=== PATIENT | female | born 1950 | race Caucasian/White ===

== ENCOUNTER 2020-09-03 09:14 | Outpatient (CLI) | payer MEDICARE, SELFPAY ==
--- NOTE | ~2020-09-03 | MM_ITS ---
EXAMINATION: MM screening [facility] BI w preethi HISTORY: Screening TECHNIQUE: Craniocaudal and mediolateral oblique 3-D tomosynthesis images were obtained and synthetic 2-D images were generated. CAD analysis was submitted and interpreted. COMPARISON: Comparison to multiple prior studies sequentially, with oldest reviewed study dated 07/14. BREAST PARENCHYMAL COMPOSITION: There are scattered areas of fibroglandular density. FINDINGS: There is no evidence of suspicious mass, calcification, or architectural distortion to sugg est malignancy in either breast. There has been no suspicious interval change. IMPRESSION: 1. No mammographic evidence of malignancy. 2. Recommend routine screening mammography in one year. BI-RADS Category 1: Negative Reviewed, dictated and finalized at location A.
== END 2020-09-03 09:15 | disposition home or self-care (01) ==
LOC: ANHIMG 09:19
PROVIDERS: PCP Internal Medicine; Visit Provider Obstetrics & Gynecology
DX: Z12.31 Encounter for screening mammogram for malignant neoplasm of breast (principal)
CPT/HCPCS: 77063; 77067

== ENCOUNTER 2020-11-06 07:45 | Outpatient (CLI) | payer MEDICARE, SELFPAY ==
--- NOTE | ~2020-11-06 | DEXA_ITS ---
Bone Density Report Name: Sneha Smith Age: 70 Sex: Female Ethnicity: White Date of : 1950 Indication: postmenopausal; Referring Provider: CHARLIE BERNSTEIN Study: Bone densitometry was performed. Exam Date: November 06, 2020 Accession number: [id number] Bone Density: Region BMD T-score Z-score Classification AP Spine (L1-L4) 1.180 1.2 3.2 Normal Femoral Neck (Left) 0.766 -0.7 0.9 Normal Total Hip (Left) 0.848 -0.8 0.6 Normal Total Hip Bilateral Avg 0.830 -1.0 0.5 Osteopenia Femoral Neck (Right) 0.758 -0.8 0.9 Normal Total Hip (Right) 0.811 -1.1 0.3 Osteopenia World Health Organization criteria for BMD impression classify patients as: Normal (T-score at or above -1.0), Osteopenia (T-score between -1.0 and -2.5), or Osteoporosis (T-score at or below -2.5). 10-year Fracture Risk(1): Major Osteoporotic Fracture 8.3% Hip Fracture 0.6% Reported Risk Factors: [place] (), Neck BMD=0.758, BMI=25.1 (1) FRAX(R) Version 3.08. Fracture probability calculated for an untreated patient. Fracture probability may be lower if the patient has received treatment. Previous Exams: Region Exam Age BMD T-score BMD Change BMD Change Date g/cm2 vs Baseline vs Previous AP Spine(L1-L4) 11/06/2020 70 1.180 1.2 0.025(2.2%)# -0.020(-1.6%) 06/21/2017 66 1.200 1.4 0.045(3.9%)# 0.045(3.9%)# 03/21/2012 61 1.155 1.0 Total Hip(Left) 11/06/2020 70 0.848 -0.8 -0.050(-5.5%)# -0.032(-3.6%)* 06/21/2017 66 0.879 -0.5 -0.018(-2.0%)# -0.018(-2.0%)# 03/21/2012 61 0.897 -0.4 Total Hip(Right) 11/06/2020 70 0.811 -1.1 -0.045(-5.2%)# -0.032(-3.8%)* 06/21/2017 66 0.843 -0.8 -0.013(-1.5%)# -0.013(-1.5%)# 03/21/2012 61 0.856 -0.7 *Denotes significance at 95% confidence level, LSC for AP Spine = 0.022 g/cm2, LSC for Total Hip = 0.027 g/cm2 Clinical Information Provided by Patient: Has used the following medications: Vitamin D Patient maximum height was 64.5 Menopause Age: 59 Onset of menses at age 12 Number of children 2 Impression: The patient has low bone mass, based on the Right Total Hip T-score. The patient has an estimated ten-year risk of hip fracture of 0.6% and an estimated ten-year risk of major fracture of 8.3%, based on the WHO FRAX algorithm. The BMD for the Total Hip(Left) decreased, changing by -3.6% since the last DXA exam. The BMD for the Total Hip(Right) decreased, changing by -3.8% since
== END 2020-11-06 07:46 | disposition home or self-care (01) ==
PROVIDERS: PCP Internal Medicine; Visit Provider Obstetrics & Gynecology
DX: Z78.0 Asymptomatic menopausal state (principal); M85.851 Other specified disorders of bone density and structure, right thigh
CPT/HCPCS: 77080

== ENCOUNTER 2021-09-27 07:55 | Outpatient (CLI) | payer MEDICARE, SELFPAY ==
--- NOTE | ~2021-09-27 | MM_ITS ---
EXAMINATION: MM screening [facility] BI w preethi HISTORY: Screening mammogram TECHNIQUE: Craniocaudal and mediolateral oblique 3-D tomosynthesis images were obtained and synthetic 2-D images were generated. CAD analysis was submitted and interpreted. COMPARISON: 09/01/2020, 08/28/2019, 06/22/2018 bilateral screening mammogram examinations BREAST PARENCHYMAL COMPOSITION: There are scattered areas of fibroglandular density. FINDINGS: Stable mild fibroglandular asymmetry. Occasional bilateral benign calcifications. There is no evidence of suspicious mass, calcification, or architectural distortion to suggest malignancy in e ither breast. There has been no suspicious interval change. IMPRESSION: 1. No mammographic evidence of malignancy. 2. Recommend routine screening mammography in one year. BI-RADS Category 2: Benign finding(s). Reviewed, dictated and finalized at location A. [place] [employer]
== END 2021-09-27 07:56 | disposition home or self-care (01) ==
LOC: ANHIMG 07:57
PROVIDERS: PCP Internal Medicine; Visit Provider Obstetrics & Gynecology
DX: Z12.31 Encounter for screening mammogram for malignant neoplasm of breast (principal)
CPT/HCPCS: 77063; 77067

== ENCOUNTER 2022-12-06 09:08 | Outpatient (CLI) | payer MEDICARE, SELFPAY ==
--- NOTE | ~2022-12-06 | MM_ITS ---
EXAMINATION: MM screening [facility] BI w preethi HISTORY: Screening mammogram TECHNIQUE: Craniocaudal and mediolateral oblique 3-D tomosynthesis images were obtained and synthetic 2-D images were generated. CAD analysis was submitted and interpreted. COMPARISON: 09/27/2021, 09/03/2020, 08/28/2019 BREAST PARENCHYMAL COMPOSITION: There are scattered areas of fibroglandular density. FINDINGS: No suspicious mass, calcification, or architectural distortion are identified in either kael ast to suggest malignancy. There has been no suspicious interval change. IMPRESSION: 1. No mammographic evidence of malignancy. 2. Recommend routine screening mammography in one year. BI-RADS Category 1: Negative Reviewed, dictated and finalized at location A. [employer]
== END 2022-12-06 09:09 | disposition home or self-care (01) ==
PROVIDERS: PCP Internal Medicine; Visit Provider Internal Medicine
DX: Z12.31 Encounter for screening mammogram for malignant neoplasm of breast (principal)
CPT/HCPCS: 77063; 77067

== ENCOUNTER 2023-03-16 12:48 | Outpatient (CLI) | payer MEDICARE, SELFPAY ==
--- NOTE | ~2023-03-16 | DEXA_ITS ---
Bone Density Report Name: STANFORD SWIFT Age: 72 Sex: Female Ethnicity: White Date of : 1950 Indication: osteopenia; parental hip fracture; height loss; postmenopausal Referring Provider: FLAKO, YNES Stanley Study: Bone densitometry was performed. Exam Date: March 16, 2023 Accession number: [id number] Bone Density: Region BMD T-score Z-score Classification AP Spine(L1-L4) 1.227 1.6 3.8 Normal Femoral Neck (Left) 0.789 -0.5 1.3 Normal Total Hip (Left) 0.858 -0.7 0.8 Normal Femoral Neck (Right) 0.785 -0.6 1.2 Normal Total Hip (Right) 0.820 -1.0 0.5 Normal Total Hip Mean 0.839 -0.9 0.7 Normal World Health Organization criteria for BMD impression classify patients as: Normal (T-score at or above -1.0), Osteopenia (T-score between -1.0 and -2.5), or Osteoporosis (T-score at or below -2.5). 10-year Fracture Risk: FRAX not reported because: All T-scores for Spine Total, Hip Total, Femoral Neck at or above -1.0 Previous Exams: Region Exam Age BMD T-score BMD Change BMD Change Date g/cm2 vs Baseline vs Previous AP Spine (L1-L4) 03/16/2023 72 1.227 1.6 0.072 (6.2%)# 0.047 (3.9%)* 11/06/2020 70 1.180 1.2 0.025 (2.2%)# -0.020 (-1.6%) 06/21/2017 66 1.200 1.4 0.045 (3.9%)# 0.045 (3.9%)# 03/21/2012 61 1.155 1.0 Total Hip(Left) 03/16/2023 72 0.858 -0.7 -0.039 (-4.3%) 0.011 (1.3%) 11/06/2020 70 0.848 -0.8 -0.050 (-5.5%) -0.032 (-3.6%) 06/21/2017 66 0.879 -0.5 -0.018 (-2.0%) -0.018 (-2.0%) 03/21/2012 61 0.897 -0.4 Total Hip(Right) 03/16/2023 72 0.820 -1.0 -0.036 (-4.2%) 0.009 (1.1%) 11/06/2020 70 0.811 -1.1 -0.045 (-5.2%) -0.032 (-3.8%) 06/21/2017 66 0.843 -0.8 -0.013 (-1.5%) -0.013 (-1.5%) 03/21/2012 61 0.856 -0.7 *Denotes significance at 95% confidence level, LSC for AP Spine = 0.022 g/cm2, LSC for Total Hip = 0.027 g/cm2 # Denotes dissimilar scan types or analysis methods Clinical Information Provided by Patient: Parent has had a hip fracture Has used the following medications: Vitamin D Patient maximum height was 64.5 Menopause Age: 57 Onset of menses at age 12 Number of children 2 Impression: The patient has normal bone mass. The patient has risk factors, including: parental hip fracture. No significant bone loss was observed. Discussion: BONE DENSITY IS ABOVE THE MINIMUM DESIRABLE LEVEL AT ALL SKELETAL SITES TESTED. This patient?s bone
== END 2023-03-16 12:49 | disposition home or self-care (01) ==
LOC: ANHIMG 12:51
PROVIDERS: PCP Internal Medicine; Visit Provider Internal Medicine
DX: Z78.0 Asymptomatic menopausal state (principal)
CPT/HCPCS: 77080

== ENCOUNTER 2023-07-06 07:52 | Emergency (ER) | payer MEDICARE, SELFPAY ==
--- NOTE | ~2023-07-06 | XR_ITS ---
EXAMINATION: XR knee RT min 4V DATE: 07/06/2023 09:55 INDICATION: Right knee pain. TECHNIQUE: 4 views of right knee were obtained. COMPARISON: Right knee radiographs 02/20/2015 FINDINGS: Bone alignment is normal. No fracture. There is mild tricompartmental osteoarthritis. No kn ee joint effusion. IMPRESSION: 1. Mild right knee osteoarthritis. Reviewed, dictated and finalized at location A.
[2023-07-06 07:53] VITALS: BP 189/82; PULSE 70; RESP 16; TEMP 36.3; O2SAT 100
[2023-07-06] MEDS: lisinopriL 10 MG TABLET PO (09:00)
[2023-07-06] MEDS: TETANUS,DIPHTHERIA,AC PERTUSSIS ADULT (0.5 ML) BOOSTRIX IM (09:01)
[2023-07-06] MEDS: ACETAMINOPHEN 325 MG TABLET 650 MG PO (09:04)
[2023-07-06] MEDS: hydroCHLOROthiazide 12.5 MG CAPSULE PO (09:10)
--- NOTE | 2023-07-06 10:01 | ED.WOUNDLAC ---
HPI - Wound/Laceration General Chief Complaint: Wound/Laceration Stated Complaint: FALL,R KNEE INJURY Time Seen by Provider: 07/06/23 08:25 Source: patient and RN notes reviewed Mode of arrival: ambulatory Limitations: no limitations History of Present Illness HPI narrative: This is a 72 year old female with history of hypertension who presents for evaluation of left knee laceration. Patient states she was walking on a trail and she tripped onto her right knee. She has a laceration that will need to be repaired. She reports she caught herself with her hands and she hit left side of her head. She does not think she hit her head hard but she is developing more a bruise to left eye brow. She denies headache, dizziness, nausea or vomiting. She does not remember her last tetanus but thinks it has been more than 10 years ago. She has not taken her blood pressure medications yet this morning Related Data Home Medications Medication Instructions Recorded Confirmed ascorbic acid 100 mg-elderberry tablet PO 09/01/20 09/01/20 fruit 50 mg chewable tablet (Airborne (elderberry)) cholecalciferol (vitamin D3) 25 25 mcg PO DAILY 09/01/20 09/01/20 mcg (1,000 unit) capsule coenzyme Q10 10 mg capsule 10 mg PO ONCE 09/01/20 09/01/20 hydrochlorothiazide 12.5 mg tablet 12.5 mg PO DAILY 09/01/20 09/01/20 lisinopril 10 mg tablet 10 mg PO DAILY 09/01/20 09/01/20 rosuvastatin 5 mg tablet (Crestor) 5 mg PO DAILY 09/01/20 09/01/20 Allergies Allergy/AdvReac Type Severity Reaction Status Date / Time chlorhexidine Allergy Unknown Unknown Verified 07/06/23 08:58 nickel Allergy Unknown Unknown Verified 07/06/23 08:58 No Known Allergies Allergy Unknown Unverified 12/17/15 06:27 paraben Allergy Unknown Unknown Verified 07/06/23 08:58 propylene glycol Allergy Unknown Unknown Verified 07/06/23 08:58 Review of Systems Constitutional: Constitutional: Denies weakness Cardiovascular: Cardiovascular: Denies syncope, Denies rapid heart rate, Denies irregular heart rhythm, Denies leg edema and Denies dyspnea Respiratory: Respiratory: Denies chest congestion, Denies hemoptysis, Denies excessive phlegm production and Denies dyspnea Gastrointestinal: Gastrointestinal: Denies abdominal pain, Denies hematochezia, Denies diarrhea and Denies vomiting Genitourinary: Genitourinary: Denies hematuria and Denies dysuria Musculoskeletal: Musculoskeletal: Reports arthralgias, Denies joint swelling, Denies loss of height and Denies muscle weakness Integumentary/Breasts: Comments: knee wound Neurologic: Denies syncope, Denies focal weakness and Denies weakness PMFSH Past Medical History Medical History (Updated 07/06/23 @ 18:20 by Petrona Eldridge MD) High cholesterol Hypertension Surgical History Surgical History (Updated 09/01/20 @ 08:44 by Alis Roberson CMA) No pertinent past surgical history Family History Family History Father Hypertension Mother Hypertension Family history of tremor Grandparent Carcinoma of colon Other Cerebrovascular accident Family history of gout Social History Social History Smoking status: Never smoker Second hand tobacco smoke exposure: No Alcohol intake: current Exam Const: General: no acute distress and alert Nutritional Appearance: well nourished Orientation/consciousness: patient oriented x3 Limitations: no limitations HENMT: Head: hematoma (left forehead hematoma) left frontal Ears: external ears normal Throat: posterior oropharynx normal and uvula midline Eyes: Pupils: Equal, round and reactive pupils present EOM: EOMs intact bilaterally Neck: Neck: normal visual inspection, no lymphadenopathy and no meningeal signs Chest: Chest palpation & inspection: normal inspection of the chest Resp: Effort & Inspection: normal respiratory effort Auscultation:
[2023-07-06 10:03] VITALS: BP 184/98; PULSE 65; RESP 18; O2SAT 100
[2023-07-06 10:44] VITALS: BP 185/93; PULSE 67; RESP 16; O2SAT 100
== END 2023-07-06 10:51 | disposition home or self-care (01) ==
PROVIDERS: Emergency Provider General Practice; PCP Internal Medicine
DX: S81.011A Laceration without foreign body, right knee, initial encounter (principal); S09.90XA Unspecified injury of head, initial encounter; I10 Essential (primary) hypertension; Z23 Encounter for immunization; W01.0XXA Fall on same level from slipping, tripping and stumbling without subsequent striking against object, initial encounter
CPT/HCPCS: 12002; 73564; 90471; 90715; 99283; A9270

== ENCOUNTER 2024-03-18 13:41 | Outpatient (CLI) | payer MEDICARE, SELFPAY ==
--- NOTE | ~2024-03-18 | MM_ITS ---
EXAMINATION: MM screening [facility] BI w preethi HISTORY: Screening mammogram TECHNIQUE: Craniocaudal and mediolateral oblique 3-D tomosynthesis images were obtained and synthetic 2-D images were generated. CAD analysis was submitted and interpreted. COMPARISON: 12/06/2022, 09/27/2021 Bilateral screening mammogram examinations BREAST PARENCHYMAL COMPOSITION: There are scattered areas of fibroglandular density. FINDINGS: There is no evidence of suspicious mass, calcification, or architectural distortion to sugg est malignancy in either breast. There has been no suspicious interval change. IMPRESSION: 1. No mammographic evidence of malignancy. 2. Recommend routine screening mammography in one year. BI-RADS Category 1: Negative Reviewed, dictated and finalized at location A.
== END 2024-03-18 13:42 | disposition home or self-care (01) ==
PROVIDERS: PCP Internal Medicine; Visit Provider Internal Medicine
DX: Z12.31 Encounter for screening mammogram for malignant neoplasm of breast (principal)
CPT/HCPCS: 77063; 77067

== ENCOUNTER 2025-05-28 07:45 | Outpatient (CLI) | payer MEDICARE, SELFPAY ==
--- NOTE | ~2025-05-28 | MM_ITS ---
EXAMINATION: MM screening brigette BI w preethi HISTORY: Screening TECHNIQUE: Craniocaudal and mediolateral oblique 3-D tomosynthesis images were obtained and synthetic 2-D images were generated. CAD analysis was submitted and interpreted. COMPARISON: Comparison to multiple prior studies sequentially, with oldest reviewed study dated 01/2018. BREAST PARENCHYMAL COMPOSITION: Not dense: There are scattered areas of fibroglandular density. FINDINGS: There is no evidence of suspicious mass, calcification, or architectural distortion to sugg est malignancy in either breast. There has been no suspicious interval change. IMPRESSION: 1. No mammographic evidence of malignancy. 2. Recommend routine screening mammography in one year. BI-RADS Category 1: Negative Reviewed, dictated and finalized at location A.
--- OUTSIDE RECORDS SUMMARY | 2025-05-28 07:50 | XMS_ITS | Clinical Summary ---
Author Organization [facility] at [facility] Medical Office Building Address [address] [place] [phone] Care Team Providers Care Poundmaster Name Role Phone Jennie Horton MD Primary Care Provider Allergies Active Allergy Reactions Criticality Noted Date Comments Alcohol-Propylene Glycol Unknown 12/02/2020 Chromic Acid Itching Low 03/19/2014 Lauryl Glucoside Unknown 12/02/2020 Phenylmercuric Acetate Unknown 12/02/2020 Potassium Bichromate Itching Low 03/19/2014 Sorbitan Sesquioleate Unknown 12/02/2020 Tert-Butylhydroquinone Unknown 12/02/2020 Medications cholecalciferol (VITAMIN D-3) 1,000 unit Take 2 tablet/caps ule (2,000 Units total) by mouth daily Active rosuvastatin (CRESTOR) 5 mg tabletIndications:M ixed hyperlipidemia TAKE 1 TABLET BY MOUTH EVERY OTHER DAY 45 tablet 3 4 Active hydroCHLOROthiazide (HYDRODIURIL) 25 mg tablet Take 1 tablet (25 mg total) by mouth daily 90 tablet 1 5 Active lisinopriL (PRINIVIL,ZESTRIL) 40 mg tablet Take 1 tablet (40 mg total) by mouth daily 90 tablet 1 5 Active Active Problems Problem Noted Date Diagnosed Date Essential hypertension 07/31/2017 Mixed hyperlipidemia 07/31/2017 Gastroesophageal reflux disease without esophagi tis 07/31/2017 Fatty liver disease, nonalcoholic 07/31/2017 Dermatomyositis 07/31/2017 Nonalcoholic steatohepatitis (PALOMO) 04/30/2014 Osteoarthritis 04/30/2014 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 Allergic contact dermatitis 03/26/2013 Overview (11/27/2019): (8) Carba mix 3.0 pet: 1-Palpable Erythema (18) Potassium dichromate 0.25 pet: 1-Palpable Erythema (19) Balsam corby 25.0 pet: 1-Palpable Erythema (20) Nickelsulfate hexahydrate 2.5 pet: Macular (non-palpable) Erythema (25) CI+Me-isothiazolinone (Kathon CG, 100ppm) 0.01 pet: 1-Palpable Erythema (27) Methyldibromoglutaronitrile (MDBGN) 0.5 pet: 1-Palpable Erythema (28) Fragrance mix 8.0 pet: Macular (non-palpable) Erythema (33) Propylene glycol 30.0 pet: 1-Palpable Erythema (53) Lauryl glucoside 3.0 pet: Macular (non-palpable) Erythema (55) Amidoamine 0.1 pet: Macular (non-palpable) Erythema (16) Chlorhexidine digluconate 0.5 aq: Macular (non-palpable) Erythema (17) Paraben Mix 16.0 pet: Macular (non-palpable) Erythema (18) Phenylmercuric acetate 0.01 aq: Macular (non-palpable) Erythema (26) Sorbitan sesquioleate 20.0 pet: Macular (non-palpable) Erythema 36) tert-Butylhydroquinone: Macular (non-palpable) Erythema (39) Dodecyl gallate 0.25 pet: 1-Palpable Erythema (43) Euxyl K 400 1.5 pet: Macular (non-palpable) Erythema (48) Dimethylaminopropylamine 1.0 aq: Macular (non-palpable) Erythema (8) Goldsodiumthiosulfate 2.0 pet: Macular (non-palpable) Erythema Encounters Date Type Department Care Team Description 04/29/2025 ACO Medication Access [facility] Care Organization [address] [place] [id number] Rosaura Osorio CPhT 04/17/2025 Telephone [facility] Primary Care [address] [place] [address] [place] [phone] Jennie Aj Successful Phone Call ([employer]) from Last 3 Months Immunizations Immunization Administration Dates Next Due Flucelvax Influenza Quad 08/28/2019 Influenza, Quad, Adjuvantate d, Intramuscular 08/17/2023,09/13/2022,09/01/2021 Influenza, Quadrivalent, Maida l Culture-based MDCK, Preservative Free, Antibiotic Free, Intramuscular 08/28/2019 Influenza, Quadrivalent, Hig h Dose, Preservative Free, Intrr 09/01/2021,08/20/2020 Influenza, Quadrivalent, Spl it, Preservative Free, Intramuscular 08/14/2017 Influenza, Trivalent, High D ose, Split, Preservative Free, Intramuscular 11/27/2018 Influenza, Unspecified 09/03/2024,2022(Deferred: Patient Refused),08/20/2018 Pfizer SARS-CoV-2 Monovalent Vaccination (12+ Yrs) PURPLE 04/19/2022,09/27/2021,01/22/2021,12/24 Pneumococcal Conjugate PCV 13 02/26/2018 Pneumococcal Polysaccharide PPV23 11/27/2018 RSV Vaccine, Pref, Recombina nt, Subunit, Adjuvanted, PF, IM (Arexvy) 11/29/2023 Tdap 07/06/2023 ZOSTER LIVE 11/06/2014,11/25/2013 Surgical History Surgery Date Site/Laterality Comments FOOT SURGERY 11/20/2014 - 12/20/2014 CATARACT EXTRACTION ? Medical History Medical History Date Comments Hypertension Hypercholesteremia GERD (gastroesophageal reflux disease) years ago Family History Medical History Relation Name Comments Heart disease Other Hypertension Other Stroke Other Relation Name Status Comments Other Social History Tobacco Use Types Packs/Day Years Used Date Smoking Tobacco: Never Smokeless Tobacco: Never Alcohol Use Standard Drinks/Week Comments Yes 0 (1 standard drink = 0.6 oz pur e alcohol) AUDIT-C Answer Date Recorded Q1: How often do you have a drink containing alc ohol? Monthly or less 06/02/2021 Q2: How many drinks containi ng alcohol do you have on a typical day when you are drinking? 1 or 2 06/02/2021 Q3: How often do you have si x or more drinks on one occasion? 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 Not on file Obstetrics History Last Filed Vital Signs Vital Sign Reading Time Taken Comments Blood Pressure 128/88 01/24/2025 2:36 PM SNUFF BLENDER Pulse 70 01/24/2025 2:36 PM SNUFF BLENDER Temperature 37.1 C (98.7 F) 01/24/2025 2:36 PM SNUFF BLENDER Respiratory Rate - - Oxygen Saturation 98% 01/24/2025 2:36 PM SNUFF BLENDER Inhaled Oxygen Concentration - - Weight 67.4 kg (148 lb 9.6 oz) 01/24/2025 2:36 P M SNUFF BLENDER Height 160 cm (5' 3) 01/24/2025 2:36 PM SNUFF BLENDER Body Mass Index 26.32 01/24/2025 2:36 PM SNUFF BLENDER Plan of Treatment Health Maintenance Due Date Last Done Comments Hepatitis B Screening 1968 Zoster Vaccine (2 of 3) 01/01/2015 11/06/2014, 11/25 Covid-19 Vaccine (2023-2 5 season) 2025 08/06/2024, 08/17/2023, 09/27/2022, Additional history exists Breast Cancer Screening-Mammogram 03/18/2025 03/18/2024, 12/06/2022, 09/27/2021, Additional history exists Fall Risk Assessment 07/09/2025 07/09/2024, 06/29/2023, 06/21/2022, Additional history exists Well Visit 65+ 07/09/2025 07/09/2024, 06/20, 06/21/2022, Additional history exists Colon Cancer Screening-DNA Stool 01/04/2026 01/04/20 23, 10/21/2013 Depression Screening 01/24/2026 01/24/2025, 07/09/2024, 01/09/2024, Additional history exists Osteoporosis Screening-Bone Density Scan 03/16/2028 03/16/2023, 03/06/2018, 02/19/2018 DTaP/Tdap/Td Vaccine (2 - Td or Tdap) 07/06/2033 07/06/2023 Colon Cancer Screening-CT Colonography Discontinued 10/21/2013 Colon Cancer Screening-Colonoscopy Discontinued 10/21/2013 Colon Cancer Screening-Sigmoidoscopy Discontinued 10/21/2013 Pneumococcal vaccine 65+ Completed 11/27/2018, 040 07/2018 Hepatitis C Screening Completed 05/21/2020 Colon Cancer Screening-FIT Discontinued 01/04/2023, Influenza Vaccine Completed 09/03/2024, , 09/13/2022, Additional history exists Procedures Procedure Name Priority Date/Time Associated Diagnosis Comments MAMMOGRAPHY Routine 03/18/2024 DEXA SCAN Routine 03/16/2023 STOOL DNA COLOGUARD Routine 01/04/2023 5:15 PM SNUFF BLENDER Colon cancer screening HEPATITIS C ANTIBODY Routine 05/21/2020 7:14 AM CDT COLONOSCOPY Routine 10/21/2013 from Last 3 Months or Most Recently Relevant to Health Maintenance Results * MAMMOGRAPHY (03/18/2024) Mammography Normal us Historical Provider MD HEALTH MAINTENANCE Final Result * DEXA SCAN (03/16/2023) Scribed Deca Scan Normal us Historical Provider HEALTH MAINTENANCE Final Result * Stool DNA - Cologuard (01/04/2023 5:15 PM SNUFF BLENDER) Stool DNA - Cologuard Negative Negative [employer] (CLIA #:[id number]) Comment: NEGATIVE TEST RESULT. A negative Cologuard result indicates a low likelihood that a colorectal cancer (CRC) or advanced adenoma (adenomatous polyps with more advanced pre-malignant features) is present. The chance that a person with a negative Cologuard test has a colorectal cancer is less than 1 in 1500 (negative predictive value >99.9%) or has an advanced adenoma is less than 5.3% (negative predictive value 94.7%). These data are based on a prospective cross-sectional study of 10,000 individuals at average risk for colorectal cancer who were screened with both Cologuard and colonoscopy. (Israel Kramer al, N Engl J Med 2014;370(14):7872-2639) The normal value (reference range) for this assay is negative. COLOGUARD RE-SCREENING RECOMMENDATION: Periodic colorectal cancer screening is an important part of preventive healthcare for asymptomatic individuals at average risk for colorectal cancer. Following a negative Cologuard result, the [place] Cancer Society and U.S. Multi-Society Task Force screening guidelines recommend a Cologuard re-screening interval of 3 years. References: [place] Cancer Society Guideline for Colorectal Cancer Screening: https://www.cancer.org/cancer/qqujc-manthg-bgueyi/jpxggjloo-yiqzydemj-whomwyd/ac s-rec ommendations.html.; Mateo DK, Ramon BOYD, Francisca ShahidK, Colorectal Cancer Screening: Recommendations for Physicians and Patients from the U.S. Multi-Society Task Force on Colorectal Cancer Screening , Am J Gastroenterology 2017; 112:1371-6612. TEST DESCRIPTION: Composite algorithmic analysis of stool DNA-biomarkers with hemoglobin immunoassay. Quantitative values of individual biomarkers are not reportable and are not associated with individual biomarker result reference ranges. Cologuard is intended for colorectal cancer screening of adults of either sex, 45 years or older, who are at average-risk for colorectal cancer (CRC). Cologuard has been approved for use by the U.S. FDA. The performance of Cologuard was established in a cross sectional study of average-risk adults aged 50-84. Cologuard performance in patients ages 45 to 49 years was estimated by sub-group analysis of near-age groups. Colonoscopies performed for a positive result may find as the most clinically significant lesion: colorectal cancer [4.0%], advanced adenoma (including sessile serrated polyps greater than or equal to 1cm diameter) [20%] or non- advanced adenoma [31%]; or no colorectal neoplasia [45%]. These estimates are derived from a prospective cross-sectional screening study of 10,000 individuals at average risk for colorectal cancer who were screened with both Cologuard and colonoscopy. (Israel Kramer al, N Engl J Med 2014;370(14):1526-0061.) Cologuard may produce a false negative or false positive result (no colorectal cancer or precancerous polyp present at colonoscopy follow up). A negative Cologuard test result does not guarantee the absence of CRC or advanced adenoma (pre-cancer). The current Cologuard screening interval is every 3 years. ([place] Cancer Society and U.S. Multi-Society Task Force). Cologuard performance data in a 10,000 patient pivotal study using colonoscopy as the reference method can be accessed at the following location: www.[employer]oxy/results. Additional description of the Cologuard test process, warnings and precautions can be found at www.[employer] Pharmard.com. Stool 01/04/2023 5:15 PM SNUFF BLENDER 01/06/2023 12:30 PM SNUFF BLENDER Jennie Horton MD LAB B ROGERIO FLUIDS AND STOOLS ORDERABLES Final Result [facility] (CLIA #:[id number]) [address] [place] [address] * Hepatitis C antibody (05/21/2020 7:14 AM CDT) Hep C Ab NON-REACTI VE NON-REACT MISSY [facility] SIGNAL TO CUT-OFF 0.07 <1.00 [facility] Comment: HCV antibody was non-reactive. There is no laboratory evidence of HCV infection. In most cases, no further action is required. However, if recent HCV exposure is suspected, a test for HCV RNA (test code 67098) is suggested. For additional information please refer to http://education.[employer].G-Snap!/faq/USY43k4 (This link is being provided for informational/ educational purposes only.) 05/21/2020 7:14 AM CDT 05/21/2020 7:15 AM CDT Narrative [facility] - 05/22/2020 9:54 AM CDT FASTING:YES FASTING: YES us Jennie Horton MD LAB M ICROBIOLOGY - GENERAL ORDERABLES Final Result [facility] [address] [address] [facility] [place] [phone] * COLONOSCOPY (10/21/2013) Colonoscopy Normal us Historical Provider HEALTH MAINTENANCE Final Result from Last 3 Months or Most Recently Relevant to Health Maintenance Insurance [facility] MEDICARE ADVANT[facility] Address: [address] [address] [place] [address] [facility] [place] [address] [place] [address] MEDICARE Care Teams Poundmaster Relationship Specialty Start Date End Date Jennie Horton MD PCP - General Internal Medicine 02/09/19
--- OUTSIDE RECORDS SUMMARY | 2025-05-28 07:50 | XMS_ITS | Clinical Summary ---
Author Organization [facility] Address [address] [place] [phone] Care Team Providers Care Cdl Bulk Driver Name Role Phone Unavailable Primary Care Provider Unavailabl e Social History Tobacco Use Types Packs/Day Years Used Date Smoking Tobacco: Never Assessed Comments Unknown Sex and Gender Information Value Date Recorded Sex Assigned at Not on file Legal Sex Female 12:20 PM MOVIE SHOT CAMERAMAN Gender Identity Not on file Sexual Orientation Not on file Plan of Treatment Health Maintenance Due Date Last Done Comments DEXA Bone Density 1950 Hepatitis C Virus (HCV) Screening 1950 TdaP Immunization 1950 Colonoscopy 1997 Colorectal Cancer Screening 1997 Cologuard 2002 Immunochemical Fecal Occult Blood 2002 Mammogram 2002 Pneumococcal Immunization (5 0+ years) (1 of 1 - PCV) 2002 Zoster Immunization (2 of 3) 01/01/2015 11/06/2014 Influenza Immunization (#1) 07/21/202411/2019, 08/28/2019, 08/20/2018 SARS-COV-2 Immunization ( season) 2024 Respiratory Syncytial Virus (RSV) Immunization (Adult) (1 - 1-dose 75+ series) 2027 Hepatitis B Immunization Aged Out No longer eligible based on patient's age to complete this topic Meningococcal Immunization (ACWY) Aged Out No longer eligible b ased on patient's age to complete this topic Rotavirus Immunization Aged Out No lo nger eligible based on patient's age to complete this topic
--- OUTSIDE RECORDS SUMMARY | 2025-05-28 07:50 | XMS_ITS | Referral Summary ---
Author Organization [facility] at [facility] Medical Office Building Address [address] [place] [phone] Care Team Providers Care Bridge Instructor Name Role Phone Jennie Horton MD Primary Care Provider Encounters Date Type Department Care Team Description 04/29/2025 ACO Medication Access [facility] Accountable Care Organization [address] [place] [phone] Rosaura Osorio CPhT 04/17/2025 Telephone [facility] Medical Group Primary Care [address] [place] [phone] Jennie Aj Successful Phone Call ([employer] med adherence) from Last 3 Months Allergies Active Allergy Reactions Criticality Noted Date [...] (8) Goldsodiumthiosulfate 2.0 pet: Macular (non-palpable) Erythema Immunizations Immunization Administration Dates Next Due Flucelvax Influenza Quad 08/28/2019 Influenza, Quad, Adjuvantate d, Intramuscular 08/17/2023,09/13/2022,09/01/2021 Influenza, Quadrivalent, Maida l Culture-based MDCK, Preservative Free, Antibiotic Free, Intramuscular 08/28/2019 Influenza, Quadrivalent, Hig h Dose, Preservative Free, Intrr 09/01/2021,08/20/2020 Influenza, Quadrivalent, Spl it, Preservative Free, Intramuscular 08/14/2017 Influenza, Trivalent, High D ose, Split, Preservative Free, Intramuscular 11/27/2018 Influenza, Unspecified 09/03/2024,2022(Deferred: Patient Refused),08/20/2018 Veodin SARS-CoV-2 Monovalent Vaccination (12+ Yrs) PURPLE 04/19/2022,09/27/2021,01/22/2021,12/24 Pneumococcal Conjugate PCV 13 02/26/2018 Pneumococcal Polysaccharide PPV23 11/27/2018 RSV Vaccine, Pref, Recombina nt, Subunit, Adjuvanted, PF, IM (Arexvy) 11/29/2023 Tdap 07/06/2023 ZOSTER LIVE 11/06/2014,11/25/2013 Social History Tobacco Use Types Packs/Day Years [...] on file Legal Sex Female 4:15 PM PARIMUTUEL TICKET CHECKER Gender Identity Not on file Sexual Orientation Not on file 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 Not on file Last Filed Vital Signs Vital Sign Reading Time Taken Comments Blood Pressure 128/88 01/24/2025 2:36 PM PARIMUTUEL TICKET CHECKER Pulse 70 01/24/2025 2:36 PM PARIMUTUEL TICKET CHECKER Temperature 37.1 C (98.7 F) 01/24/2025 2:36 PM PARIMUTUEL TICKET CHECKER Respiratory Rate - - Oxygen Saturation 98% 01/24/2025 2:36 PM PARIMUTUEL TICKET CHECKER Inhaled Oxygen Concentration - - Weight 67.4 kg (148 lb 9.6 oz) 01/24/2025 2:36 P M PARIMUTUEL TICKET CHECKER Height 160 cm (5' 3) 01/24/2025 2:36 PM PARIMUTUEL TICKET CHECKER Body Mass Index 26.32 01/24/2025 2:36 PM PARIMUTUEL TICKET CHECKER Plan of Treatment Not on file Procedures Procedure Name Priority Date/Time Associated Diagnosis Comments MAMMOGRAPHY Routine 03/18/2024 DEXA SCAN Routine 03/16/2023 STOOL DNA COLOGUARD Routine 01/04/2023 5:15 PM PARIMUTUEL TICKET CHECKER Colon cancer screening HEPATITIS C ANTIBODY Routine 05/21/2020 7:14 AM CDT COLONOSCOPY Routine 10/21/2013 from Last 3 Months or Most Recently Relevant to Health Maintenance Results * MAMMOGRAPHY (03/18/2024) Mammography Normal us Historical Provider HEALTH MAINTENANCE Final Result * DEXA SCAN (03/16/2023) Pathologist [facility] Scribed Deca Scan Normal us Historical Provider HEALTH MAINTENANCE Final Result * Stool DNA - Cologuard (01/04/2023 5:15 PM PARIMUTUEL TICKET CHECKER) Pathologist [facility] Stool DNA - Cologuard Negative Negative [facility] (CLIA #:[id number]) Comment: NEGATIVE TEST RESULT. A negative Cologuard [...] screened with both Cologuard and colonoscopy. (Israel Barros. et al, N Engl J Med 2014;370(14):7936-1641) The normal value (reference range) for this assay is negative. COLOGUARD RE-SCREENING RECOMMENDATION: Periodic colorectal cancer screening is an important part of preventive healthcare for asymptomatic individuals at average risk for colorectal cancer. Following a negative Cologuard result, the [place] Cancer Society and U.S. Multi-Society Task Force screening guidelines recommend a Cologuard re-screening interval of 3 years. References: [place] [employer] Guideline for Colorectal Cancer Screening: https://www.cancer.org/cancer/flsbi-fgelmq-qdhzbr/pkwjotcwj-umwtqdacz-isnymth/ac s-rec ommendations.html.; Mateo ORTEGA, Ramon BOYD, Francisca ShahidK, Colorectal Cancer Screening: Recommendations for Physicians and Patients from the U.S. Multi-Society Task Force on Colorectal Cancer Screening , Am J Gastroenterology 2017; 112:6962-2025. TEST DESCRIPTION: Composite algorithmic analysis of stool [...] screened with both Cologuard and colonoscopy. (Israel Wheatley et al, N Engl J Med 2014;370(14):7755-5044.) Cologuard may produce a false negative or false positive result (no colorectal cancer or precancerous polyp present at colonoscopy follow up). A negative Cologuard test result does not guarantee the absence of CRC or advanced adenoma (pre-cancer). The current Cologuard screening interval is every 3 years. ([place] Cancer Society and U.S. Multi-Society Task Force). Cologuard performance data in a 10,000 patient pivotal study using colonoscopy as the reference method can be accessed at the following location: www.OptionEase/results. Additional description of the Cologuard test process, warnings and precautions can be found at www.[employer] Solutions[employer].GFI Software. Stool 01/04/2023 5:15 PM PARIMUTUEL TICKET CHECKER 01/06/2023 12:30 PM PARIMUTUEL TICKET CHECKER us Jennie Horton MD LAB B ROGERIO FLUIDS AND STOOLS ORDERABLES Final Result [facility] (CLIA #:[id number]) [place] [address] * Hepatitis C antibody (05/21/2020 7:14 AM CDT) Hep C Ab NON-REACTI VE NON-REACT MISSY [facility] SIGNAL TO CUT-OFF 0.07 <1.00 [facility] Comment: HCV antibody was non-reactive. There is no laboratory evidence of HCV infection. In most cases, no further action is required. However, if recent HCV exposure is suspected, a test for HCV RNA (test code 32779) is suggested. For additional information please refer to http://education.[employer].GFI Software/faq/YGM50b1 (This link is being provided for informational/ educational purposes only.) 05/21/2020 7:14 AM CDT 05/21/2020 7:15 AM CDT Narrative [facility] - 05/22/2020 9:54 AM CDT FASTING:YES FASTING: YES Jennie Horton MD LAB M ICROBIOLOGY - GENERAL ORDERABLES Final Result [facility] [address] [address] [facility] [place] [phone] * COLONOSCOPY (10/21/2013) Colonoscopy Normal us Historical Provider HEALTH MAINTENANCE Final Result from Last 3 Months or Most Recently Relevant to Health Maintenance Insurance [facility] MEDICARE [facility]ANT[facility] Address: [address] [address] [place] [address] [facility] MEDICARE [employer] MEDICARE Care Teams Bridge Instructor Relationship Specialty Start Date End Date Jennie Horton MD PCP - General Internal Medicine 02/09/19
== END 2025-05-28 07:46 | disposition home or self-care (01) ==
LOC: ANHIMG 07:48
PROVIDERS: PCP Internal Medicine; Visit Provider Internal Medicine
DX: Z12.31 Encounter for screening mammogram for malignant neoplasm of breast (principal)
CPT/HCPCS: 77063; 77067

== ENCOUNTER 2025-10-17 07:11 | Outpatient (CLI) | payer MEDICARE, SELFPAY ==
--- NOTE | ~2025-10-17 | US_ITS ---
US right upper quadrant INDICATION: Fatty liver PROCEDURE: Realtime right upper abdominal ultrasound. COMPARISON: No prior studies for comparison. FINDINGS: The pancreas is normal without focal mass or pancreatic ductal dilation. Liver echotexture is increased, consistent with fatty infiltration. There is normal directional flow in the portal vein. The gallbladder is normal without stones, gallbladder wall thickening or pericholecystic fluid. Common bile duct measures 3 mm. No sonographic Grant's sign. IMPRESSION: 1: Fatty infiltration of the liver. Reviewed, dictated and finalized at location P. LEGAL INSTRUCTOR
== END 2025-10-17 07:12 | disposition home or self-care (01) ==
LOC: MICIMG 07:12
PROVIDERS: PCP Internal Medicine; Visit Provider Internal Medicine
DX: K76.0 Fatty (change of) liver, not elsewhere classified (principal)
CPT/HCPCS: 76705